=== PATIENT | male | born 1990 | race American Indian/Alaskan Native ===

== ENCOUNTER 2021-03-02 17:25 | Emergency (ER) | payer SELFPAY ==
--- NOTE | 2021-03-02 17:37 | Event Note ---
ED Screening Note Date of service: 03/02/21 Time: 17:34 ED Screening Note: 30-year-old male patient with history of cannabinoid hyperemesis syndrome presents emergency department with complaints of epigastric pain with associated nausea, vomiting, and diarrhea for 2 days. Patient estimates he has had approximately 15 episodes of nonbloody emesis and 30 episodes of nonbloody diarrhea in the last 24 hours. No known sick contacts. Endorses continued marijuana use. No current steroid or antibiotic use. No recent travel. Denies fever, chills, shortness of breath, back pain, urinary symptoms, rectal bleeding, melena. Denies all other complaints at this time. General: Awake, appropriately interactive. Appears uncomfortable and nauseous. Neck: Supple. Full range of motion intact. Cardiovascular: Normal peripheral perfusion. Pulmonary: No respiratory distress. Patient is speaking normally without use of accessory muscles. Abdomen: Soft, diffusely tender without localized guarding, rigidity, or rebound. Skin: No apparent rashes or lesions. Neurological: No facial asymmetry. Speech is clear. Follows commands. Patient is alert and oriented. Musculoskeletal: Moves all four extremities spontaneously with normal range of motion. Psych: Cooperative. Appropriate mood and affect. I have greeted and performed a focused rapid initial assessment of this patient. A comprehensive ED assessment and evaluation of the patient, analysis of all test results, and completion of the medical decision-making process will be conducted by additional ED providers. This initial assessment/diagnostic orders/clinical plan/treatment(s) is/are subject to change based on patients health status, clinical progression and re-assessment. Further treatment and workup at subsequent clinical provider's discretion. Patient/guardian urged not to elope from the ED as their condition may be serious if not clinically assessed and managed.
[2021-03-02 19:19] LABS: Basophils % (Auto) 0.2 % (0.0-1.8); Hematocrit 49.9 % (35.5-45.6); Hemoglobin 16.5 gm/dl (11.8-15.2); Lymphocytes # (Auto) 1.1 K/mm3 (1.2-5.4); Mean Corpuscular HGB Conc 33 % (32-34); Mean Corpuscular Volume 89 fl (84-94); Monocytes # (Auto) 1.1 K/mm3 (0.0-0.8); Monocytes % (Auto) 7.8 % (0.0-7.3); Platelet Count 361 K/mm3 (140-440); Red Blood Count 5.63 M/mm3 (3.65-5.03); Red Cell Distribution Width 12.7 % (13.2-15.2)
[2021-03-02 19:40] LABS: Alanine Aminotransferase 34 units/L (7-56); Albumin 5.1 g/dL (3.9-5); BUN/Creatinine Ratio 17; Blood Urea Nitrogen 19 mg/dL (9-20); Calcium 10.5 mg/dL (8.4-10.2); Hemolysis Index 35
[2021-03-02] MEDS ORDERED: ONDANSETRON 4 MG/2 ML INJ IV ONE (19:48)
[2021-03-02] MEDS ORDERED: SODIUM CHLORIDE 0.9% 1000 ML 1,000 ML IV ONE (19:48)
[2021-03-02] MEDS ORDERED: diphenhydrAMINE 50 MG/ML VIAL IV ONE (19:48)
--- NOTE | 2021-03-02 19:51 | Emergency Department Report ---
ED N/V/D HPI - General Chief complaint: Nausea/Vomiting/Diarrhea Stated complaint: ABD PAIN/DIARRHEA Time Seen by Provider: 03/02/21 19:33 Source: patient, EMS Mode of arrival: Ambulatory Limitations: No Limitations - History of Present Illness Initial comments: Patient is 30 years old male with history of cannabinoid syndrome. Patient presented to the ER complaining of nausea, vomiting, diarrhea and diffuse abdominal pain. Patient stated that this is similar to what he used to have. Patient admitted to smoking marijuana yesterday and today. Patient denied any fever or chills. MD complaint: nausea, vomiting, diarrhea, abdominal pain -: This morning Description of Vomiting: food contents Location: diffuse - Related Data Allergies Allergy/AdvReac Type Severity Reaction Status Date / Time No Known Allergies Allergy Unverified 03/02/21 17:32 ED Review of Systems ROS: Stated complaint: ABD PAIN/DIARRHEA Other details as noted in HPI Comment: All other systems reviewed and negative Constitutional: denies: chills, fever Respiratory: denies: cough, shortness of breath, SOB with exertion, SOB at rest Cardiovascular: denies: chest pain, palpitations Gastrointestinal: abdominal pain, nausea, vomiting, diarrhea Neurological: denies: headache, weakness, numbness, paresthesias, confusion ED Past Medical Hx - Past Medical History Previous Medical History?: Yes Hx GERD: Yes Additional medical history: marijuana induced N/V - Surgical History Past Surgical History?: No - Social History Smoking Status: Current Every Day Smoker Substance Use Type: Alcohol, Cocaine, Marijuana ED Physical Exam - General Limitations: No Limitations General appearance: alert, in no apparent distress - Head Head exam: Present: atraumatic, normocephalic, normal inspection - Eye Eye exam: Present: normal appearance, PERRL - ENT ENT exam: Present: normal exam, normal orophraynx, mucous membranes moist - Neck Neck exam: Present: normal inspection, full ROM. Absent: tenderness, meningismus - Respiratory Respiratory exam: Present: normal lung sounds bilaterally - Cardiovascular Cardiovascular Exam: Present: regular rate, normal rhythm, normal heart sounds - GI/Abdominal GI/Abdominal exam: Present: soft, normal bowel sounds. Absent: distended, tenderness, guarding, rebound, rigid, organomegaly, mass, bruit, pulsatile mass, hernia - Extremities Exam Extremities exam: Present: normal inspection, full ROM, normal capillary refill - Back Exam Back exam: Present: normal inspection, full ROM. Absent: CVA tenderness (R), CVA tenderness (L) - Neurological Exam Neurological exam: Present: alert, oriented X3, CN II-XII intact - Psychiatric Psychiatric exam: Present: normal mood - Skin Skin exam: Present: warm, intact, normal color ED Course Vital Signs 03/02/21 03/02/21 03/02/21 17:29 19:43 19:45 Temperature 98.7 F Pulse Rate 73 56 L 51 L Respiratory 15 14 Rate Blood Pressure 131/99 Blood Pressure [Right] O2 Sat by Pulse 98 99 96 Oximetry 03/02/21 19:49 Temperature 98.2 F Pulse Rate 53 L Respiratory 16 Rate Blood Pressure Blood Pressure 132/91 [Right] O2 Sat by Pulse 99 Oximetry ED Medical Decision Making - Lab Data Result diagrams: 03/02/21 18:36 03/02/21 18:36 - Medical Decision Making Patient is 30 years old male with history of cannabinoid syndrome. Patient presented to the ER complaining of nausea, vomiting, diarrhea and diffuse abdominal pain. Patient stated that this is similar to what he used to have. Patient admitted to smoking marijuana yesterday and today. Patient denied any fever or chills. Labs reviewed and showed slight elevated white blood cells of 14. Patient symptoms improved significantly with Zofran Benadryl and normal saline. Patient counseled about marijuana abuse. Patient abdominal pain is completely resolved. Abdomen is soft and nontender. No rebound tenderness and no clinical evidence of appendicitis. Patient given prescription for Zofran and advised to follow-up with his primary doctor in the next 2 to 3 days and to return to the ER if he develop any new symptoms. Critical care attestation.: If time is entered above; I have spent that time in minutes in the direct care of this critically ill patient, excluding procedure time. ED Disposition Clinical Impression: Acute nausea with nonbilious vomiting, Cannabinoid hyperemesis syndrome Disposition: - TO HOME OR SELFCARE Is pt being admited?: No Condition: Stable Instructions: Nausea and Vomiting, Adult, Cannabis Use Disorder Referrals: PRIMARY CARE, [Primary Care Provider] - 3-5 Days
[2021-03-02 22:42] VITALS: BP 136/84
[2021-03-02] MEDS ORDERED: KETOROLAC 30 MG/1 ML INJ IV ONE (22:44)
== END 2021-03-02 22:56 | disposition home or self-care (01) ==
LOC: ED 17:25
DX: R11.2 Nausea with vomiting, unspecified (principal); K21.9 Gastro-esophageal reflux disease without esophagitis; F17.200 Nicotine dependence, unspecified, uncomplicated; F12.90 Cannabis use, unspecified, uncomplicated; F14.90 Cocaine use, unspecified, uncomplicated
CPT/HCPCS: 36415; 80053; 83690; 83735; 85025; 96361; 96374; 96375; 99284; J1200; J1885; J2405; J7030

== ENCOUNTER 2022-04-13 12:27 | Emergency (ER) | payer SELFPAY ==
[2022-04-13 13:38] LABS: Basophils % (Auto) 0.2 % (0.0-1.8); Eosinophils % (Auto) 0.1 % (0.0-4.3); Hematocrit 48.9 % (35.5-45.6); Lymphocytes # (Auto) 1.5 K/mm3 (1.2-5.4); Lymphocytes % (Auto) 8.9 % (13.4-35.0); Mean Corpuscular HGB Conc 33 % (32-34); Mean Corpuscular Volume 85 fl (84-94); Monocytes # (Auto) 1.2 K/mm3 (0.0-0.8); Monocytes % (Auto) 7.5 % (0.0-7.3); Platelet Count 418 K/mm3 (140-440); Red Blood Count 5.75 M/mm3 (3.65-5.03); Red Cell Distribution Width 12.8 % (13.2-15.2)
[2022-04-13 14:01] LABS: Alanine Aminotransferase 20 units/L (7-56); Albumin 4.8 g/dL (3.9-5); BUN/Creatinine Ratio 16; Blood Urea Nitrogen 18 mg/dL (9-20); Calcium 10.1 mg/dL (8.4-10.2); Hemolysis Index 3
[2022-04-13] MEDS ORDERED: ONDANSETRON 4 MG ODT TAB PO ONE (19:43)
[2022-04-13] MEDS ORDERED: FAMOTIDINE 20 MG TAB PO ONE (19:43)
[2022-04-13 19:51] VITALS: BP 111/78
== END 2022-04-13 21:06 | disposition left against medical advice (07) ==
LOC: ED 12:27
DX: R10.13 Epigastric pain (principal); R06.6 Hiccough; Z53.21 Procedure and treatment not carried out due to patient leaving prior to being seen by health care provider
CPT/HCPCS: 36415; 80053; 83690; 85025; J3490; Q0162